=== PATIENT | male | born 1975 | race Caucasian/White ===

== ENCOUNTER → 2019-09-15 16:00 | Outpatient (CLI) | payer OTHER, SELFPAY | PROVIDERS: PCP Family Medicine; Referring Provider Family Medicine; Visit Provider Family Medicine | DX: Z20.828 Contact with and (suspected) exposure to other viral communicable diseases (principal) | CPT/HCPCS: 87635; G2023; U0003 ==

== ENCOUNTER → 2020-05-06 15:17 | Outpatient (CLI) | payer OTHER, SELFPAY ==
[2020-05-06 17:32] LABS: Erythrocyte Sedimentation Rate 7 mm/hr (0-20)
[2020-05-06 17:39] LABS: CRP < 2.90 mg/L (0.0-3.0); Rheumatoid Factor < 10.0 IU/mL (<15)
[2020-05-08 16:09] LABS: ANTINUCLEAR ANTIBODIES DIRECT Negative (Negative)
[2020-05-09 13:03] LABS: CCP IgG Antibodies 6 units (0-19)
== END ==
PROVIDERS: PCP Family Medicine; Visit Provider Family Medicine
DX: M13.0 Polyarthritis, unspecified (principal)
CPT/HCPCS: 36415; 85652; 86038; 86140; 86200; 86225; 86235; 86431